=== PATIENT | male | born 1945 | race Two or more races ===

== ENCOUNTER 2018-07-22 13:35 | Outpatient (CLI) | payer MEDICARE, OTHER ==
[2018-07-22 14:03] LABS: eGFR (Non-African) > 60
[2018-07-22 14:06] LABS: MEAN CORPUSCULAR HEMOGLOBIN 31.7 pg (28.0-34.0)
[2018-07-22 14:07] LABS: BASOPHILS % 6 % (0-2); EOSINOPHILS % 0 % (0-7); MONOCYTES % 6 % (0-11); SEGMENTED NEUTROPHILS % 34 % (39-79); TOXIC GRANULATION PRESENT
[2018-07-22 14:08] LABS: ANISOCYTOSIS 1+ (NEGATIVE)
== END 2018-07-22 13:36 ==
LOC: LAB 13:35
PROVIDERS: ATTEND Family Medicine
DX: R19.5 Other fecal abnormalities (principal)
CPT/HCPCS: 36415; 80053; 85025